=== PATIENT | female | born 1995 | race Hispanic/Latino ===

== ENCOUNTER → 2017-10-15 | Outpatient (CLI) | payer OTHER ==
--- NOTE | 2017-10-15 14:27 | Diagnostic Imaging Report ---
PROCEDURE: X-RAY CHEST, TWO VIEWS COMPARISON: None. INDICATIONS: PHYSICAL FINDINGS: LUNGS: No consolidations or edema. PLEURA: No effusions or pneumothorax. HEART \T\ MEDIASTINUM: The heart is within normal size-limits. BONES \T\ SOFT TISSUES: No acute findings. CONCLUSION: No acute cardiopulmonary abnormality. Dictated by: Diallo Crystal M.D. on 10/15/2017 at 14:26 Electronically approved by: Diallo Crystal M.D. on 10/15/2017 at 14:26
== END ==
LOC: RAD 12:34
PROVIDERS: ATTEND Internal Medicine
DX: Z00.00 Encounter for general adult medical examination without abnormal findings (principal)
CPT/HCPCS: 71046

== ENCOUNTER 2019-04-02 09:14 | Inpatient (IN) | payer BC, OTHER ==
[~2019-04-02] VITALS: Ht 144.8 cm; Wt 46.8 kg
[2019-04-02] MEDS ORDERED: ONDANSETRON HCL INJ 2MG/ML 2ML 2 MG/ML VIAL IV STA (09:32)
[2019-04-02] MEDS ORDERED: VITAMIN B-121000 MCG PO (09:37)
[2019-04-02] MEDS ORDERED: BIOTIN800 MCG (09:37)
[2019-04-02] MEDS ORDERED: METHOTREXATE2.5 MG PO (09:37)
[2019-04-02] MEDS ORDERED: FOLIC ACID1 MG PO (09:37)
[2019-04-02] MEDS ORDERED: PREDNISONE10 MG PO (09:37)
[2019-04-02] MEDS ORDERED: VITAMIN D400 UNIT PO (09:37)
[2019-04-02] MEDS ORDERED: PLAQUENIL200 MG PO (09:37)
[2019-04-02] MEDS ORDERED: ASPIRIN CHEW81 MG PO (09:37)
[2019-04-02] MEDS ORDERED: IOPAMIDOL 370 MG/ML 200 ML INFUS..BTL INJ ONE (09:44)
[2019-04-02] MEDS ORDERED: SODIUM CHLORIDE 0.9% 1000ML 1,000 ML IV SCH ×2 (09:45)
[2019-04-02] MEDS ORDERED: ACETAMINOPHEN 325 MG TAB PO ONE (09:45)
[2019-04-02] MEDS ORDERED: KETOROLAC TROMETHAMINE 30 MG/ML VIAL IV NR (09:45)
[2019-04-02] MEDS ORDERED: DIATRIZOATE MEGL/DIATRIZOA SOD 30 ML BTL PO ONE (09:46)
[2019-04-02] MEDS ORDERED: ACETAMINOPHEN 325 MG TAB ONE (09:47)
[2019-04-02] MEDS ORDERED: ONDANSETRON HCL INJ 2MG/ML 2ML 2 MG/ML VIAL ONE (09:47)
[2019-04-02] MEDS ORDERED: SODIUM CHLORIDE 0.9% 1000ML 2,000 ML ONE (09:48)
--- NOTE | 2019-04-02 11:40 | Diagnostic Imaging Report ---
Chest, 2 views, 04/02/2019. History: Fever. Comparison: None available. Findings: The cardiomediastinal silhouette and pulmonary vasculature are within normal limits. The lungs are clear without evidence of consolidation or pleural effusion. There are no acute osseous or soft tissue abnormalities. Impression: No acute cardiopulmonary abnormality. Signed by: Jhoan Worthington on 04/02/2019 11:37 AM
[2019-04-02] MEDS ORDERED: PIPER-TAZ 3.375 GM 50 ML IV ONE (11:45)
--- NOTE | 2019-04-02 11:48 | Diagnostic Imaging Report ---
CT of the abdomen and pelvis, with contrast, 04/02/2019. History: Abdominal pain. Comparison: None available. Technique: Multidetector CT scanning of the abdomen and pelvis was performed from the level of the lung bases to the inferior pubic rami after intravenous and oral administration of contrast. Coronal and sagittal multiplanar reformations were obtained. RADIATION DOSE: Total DLP: 330 mGy*cm Dose modulation, iterative reconstruction, and/or weight based adjustment of the mA/kV was utilized to reduce the radiation dose to as low as reasonably achievable. Discussion: LUNG BASES: No visualized abnormalities. ABDOMEN: The liver, gallbladder, biliary tree, spleen, pancreas, adrenal glands, and kidneys are normal. The hepatic vein, portal vein, and splenic vein are patent. The abdominal aorta is within normal limits for size. The stomach, small bowel, and large bowel are unremarkable. There is no bowel dilatation or bowel wall thickening. The appendix is visualized and is normal. There is no evidence of adenopathy or free fluid. PELVIS: The bladder, uterus, and adnexa are normal in appearance. There is no evidence of free fluid or adenopathy. BONES AND SOFT TISSUES: No abnormality. IMPRESSION: Normal CT of the abdomen and pelvis. No evidence of cholelithiasis, nephrolithiasis, appendicitis, or bowel obstruction. Signed by: Jhoan Worthington on 04/02/2019 11:45 AM
[2019-04-02] MEDS ORDERED: PIPER-TAZ 3.375 GM 50 ML ONE (13:08)
[2019-04-02] MEDS ORDERED: LEVOFLOXACIN 750MG/D5W 150ML 150 ML IV ONE (13:08)
[2019-04-02] MEDS ORDERED: ONDANSETRON HCL INJ 2MG/ML 2ML 2 MG/ML VIAL IV PRN (13:45)
[2019-04-02] MEDS: LEVOFLOXACIN 750MG/D5W 150ML 150 ML IV SCH (13:45)
[2019-04-02] MEDS: SODIUM CHLORIDE 0.9% 1000ML 1,000 ML IV SCH ×2 (14:10→18:43)
[2019-04-02] MEDS ORDERED: SODIUM CHLORIDE 0.9% 1000ML 1,000 ML ONE (14:14)
--- NOTE | 2019-04-02 16:16 | NUR ---
[facility] here for pt
--- NOTE | 2019-04-02 16:20 | NUR ---
Report called to AVERY Crowell in [facility]
[2019-04-02 16:30] VITALS: BP 121/77
--- NOTE | 2019-04-02 16:30 | NUR ---
Pt received from outside hospital. Alert and oriented x4. Oriented to staff and surroundings. Encouraged to press call lilly if help needed. Call lilly within reach. Will monitor
[2019-04-02] MEDS: PIPER-TAZ 3.375 GM 50 ML IV SCH ×2 (18:43→23:35)
--- NOTE | 2019-04-02 19:16 | NUR ---
All meds given as ordered. Handoff given to oncoming nurse.
--- NOTE | 2019-04-02 19:30 | NUR ---
patient recieved awake, alert, lying quietly in bed. vss. no c/o pain noted. ivf continue to infuse without difficulty. pm assessment complete. patient instructed to call for assistance when needed.
[2019-04-02 20:00] VITALS: BP 99/74
[2019-04-03] VITALS (7 sets, daily range): BP systolic 104–117; BP diastolic 63–79
--- NOTE | 2019-04-03 | NUR ---
patient appears to be resting quietly. vss. no c/o pain noted. ivf continue to infuse without difficulty. patient remains nsr on the bedside monitor.
[2019-04-03] MEDS: SODIUM CHLORIDE 0.9% 1000ML 1,000 ML IV SCH ×3 (03:00→22:55)
[2019-04-03 05:25] LABS: BASOPHILS % 0.4 % (0.0-1.0); EOSINOPHILS % 0.7 % (0.0-6.0); HEMATOCRIT 30.8 % (34.2-44.1); HEMOGLOBIN 9.8 g/dL (12.0-16.0); LYMPHOCYTES # (AUTO) 0.7 (1.0-3.2); LYMPHOCYTES % 24.4 % (18.0-39.1); MEAN CORPUSCULAR HEMOGLOBIN 26.6 pg (28-32); MEAN CORPUSCULAR HGB CONC 31.8 g/dL (31-35); MEAN CORPUSCULAR VOLUME 83.5 fL (81-99); MONOCYTES # (AUTO) 0.1 (0.2-0.8); MONOCYTES % 5.2 % (4.4-11.3); NEUTROPHILS # (AUTO) 1.8 (2.1-6.9); NEUTROPHILS % 68.2 % (38.7-80.0); PLATELET COUNT 196 x10e3/uL (140-360); RED BLOOD COUNT 3.69 x10e6/uL (3.6-5.1); RED CELL DISTRIBUTION WIDTH 18.4 % (11.7-14.4)
[2019-04-03] MEDS: PIPER-TAZ 3.375 GM 50 ML IV SCH ×4 (05:31→23:59)
[2019-04-03 05:58] LABS: ALBUMIN 2.8 g/dL (3.5-5.0); ALKALINE PHOSPHATASE 43 IU/L (40-150); ANION GAP 12.8 mmol/L (8-16); BLOOD UREA NITROGEN 6 mg/dL (7-26); BUN/CREATININE RATIO 8 (6-25); CARBON DIOXIDE 20 mmol/L (22-29); CHLORIDE 110 mmol/L (98-107); CREATININE, SERUM 0.71 mg/dL (0.57-1.11); EST GLOMERULAR FILTRATION RATE > 60 ML/MIN (60-); GLUCOSE 84 mg/dL (74-118); POTASSIUM 3.8 mmol/L (3.5-5.1); SODIUM 139 mmol/L (136-145)
[2019-04-03 06:09] LABS: ALANINE AMINOTRANSFERASE < 6 IU/L (0-55)
--- NOTE | 2019-04-03 07:00 | NUR ---
Pt received resting in bed with mother & sister at bedside. Oriented to staff and surrounding. Call lilly within reach. Will monitor
[2019-04-03] MEDS: PANTOPRAZOLE 40 MG 10ML VIAL IV SCH (08:17)
--- NOTE | 2019-04-03 08:30 | NUR ---
All meds given as ordered. No c/o abdominal pain noted or voiced. Call lilly within reach. Will monitor
[2019-04-03 09:08] LABS: EOSINOPHILS % (MANUAL) 1 % (0-7); LYMPHOCYTES % (MANUAL) 18 % (19-48); MONOCYTES % (MANUAL) 4 % (3.4-9.0); NEUTROPHILS % (MANUAL) 76 % (40-74); PLATELET ESTIMATE ADEQUATE; PLATELET MORPHOLOGY COMMENT NORMAL; RBC MORPHOLOGY COMMENT NORMAL
[2019-04-03] MEDS: LEVOFLOXACIN 750MG/D5W 150ML 150 ML IV SCH (11:44)
--- NOTE | 2019-04-03 17:58 | History and Physical ---
CHIEF COMPLAINT: Fever, vomiting, abdominal pain. HISTORY OF PRESENT ILLNESS: A 24-year-old female patient with history of lupus on methotrexate, prednisone, Plaquenil; had a fever of 101 with abdominal pain localized to the umbilical area and also vomited. After several episodes of vomiting, she noticed some blood streaks. She feels better. She was treated in the ER with a fluid bolus and antibiotics. The patient follows with Dr. Moise, primary care doctor. She feels better now. No pain. She tolerated the breakfast without vomiting. She denies diarrhea or rectal bleeding. PAST MEDICAL HISTORY: Lupus. MEDICATIONS: 1. Methotrexate 2.5 mg. 2. Plaquenil. 3. Folic acid 1 mg daily. 4. Biotin. 5. Aspirin. 6. Cholecalciferol. 7. Tylenol. 8. Zofran was given in the ER. PERSONAL HISTORY: No history of smoking or alcohol. PHYSICAL EXAMINATION: VITAL SIGNS: Weight 100 pounds. Temperature 100.3. Height of 4 feet 9 inches. HEENT: Normal. NECK: No JVD. LUNGS: Bilaterally normal. ABDOMEN: Soft. Bowel sounds are normal. EXTREMITIES: Lower extremities, no edema. [employer]ENDANT: Normal. LABORATORY DATA: CBC; white blood count 2.70, hemoglobin 9.8, and platelet 296. Chemistry, sodium [address] abdomen and pelvis with contrast normal. Chest x-ray normal. ASSESSMENT: Fever followed by abdominal pain and vomiting, most likely gastroenteritis. PLAN: We will continue to monitor. The patient is improving. If remains afebrile and tolerates feeding, we will discharge tomorrow. MD MARIELA Saleh/MODL /[id number]
[2019-04-04] VITALS: BP 113/80
[2019-04-04 04:31] VITALS: BP 100/63
[2019-04-04 06:23] LABS: BASOPHILS % 0.5 % (0.0-1.0); EOSINOPHILS % 1.8 % (0.0-6.0); HEMATOCRIT 30.3 % (34.2-44.1); HEMOGLOBIN 9.7 g/dL (12.0-16.0); LYMPHOCYTES # (AUTO) 0.5 (1.0-3.2); LYMPHOCYTES % 22.5 % (18.0-39.1); MEAN CORPUSCULAR HEMOGLOBIN 26.8 pg (28-32); MEAN CORPUSCULAR VOLUME 83.7 fL (81-99); MONOCYTES # (AUTO) 0.2 (0.2-0.8); MONOCYTES % 6.8 % (4.4-11.3); NEUTROPHILS # (AUTO) 1.5 (2.1-6.9); NEUTROPHILS % 67.5 % (38.7-80.0); PLATELET COUNT 176 x10e3/uL (140-360); RED BLOOD COUNT 3.62 x10e6/uL (3.6-5.1); RED CELL DISTRIBUTION WIDTH 18.6 % (11.7-14.4)
[2019-04-04] MEDS: PIPER-TAZ 3.375 GM 50 ML IV SCH ×2 (06:24→12:28)
[2019-04-04 07:13] VITALS: BP 107/63
[2019-04-04] MEDS: SODIUM CHLORIDE 0.9% 1000ML 1,000 ML IV SCH (08:34)
[2019-04-04] MEDS: PANTOPRAZOLE 40 MG 10ML VIAL IV SCH (08:37)
[2019-04-04 08:44] VITALS: BP 107/63
[2019-04-04 09:00] VITALS: BP 107/63
[2019-04-04] MEDS: LEVOFLOXACIN 750MG/D5W 150ML 150 ML IV SCH (10:54)
[2019-04-04 11:15] VITALS: BP 107/72
--- NOTE | 2019-04-04 12:00 | NUR ---
Placed call to Dr. Grace at patient's request to for work excuse. wating for call back.
--- NOTE | 2019-04-04 13:10 | NUR ---
Dr. Grace returned call made aware of patient's request work excuse, and wanting to know when to returned to work, per Dr. Grace patient may take Friday and Friday and return to work on Friday and put it on discharge paperwork. and to follow up with her primary care doctor, or go to Dr. Grace office for work excuse.
--- NOTE | 2019-04-04 13:12 | Discharge Summary ---
HOSPITAL COURSE: A 24-year-old female patient with history of lupus, admitted with abdominal pain, vomiting, and fever. The patient's blood pressure is low, she was given bolus of fluids and antibiotic. Lactic acid is 12.6. The patient felt better. She remained afebrile. She tolerated oral feeding. The patient be discharged home with oral Cipro for 5 days. DISCHARGE DIAGNOSES: Acute gastroenteritis, vomiting, diarrhea, dehydration, and sepsis. History of lupus. MD MARIELA Saleh/DAVIDL /[id number]
--- NOTE | 2019-04-04 13:35 | NUR ---
Patient discharged home verbalized understanding of discharge instructions.
== END 2019-04-04 13:35 | disposition home or self-care (01) | DRG 872 ==
LOC: FSED 09:14 → ERHOLD 13:33 → IMCU 16:30
PROVIDERS: ADMIT Internal Medicine; ATTEND Internal Medicine
DX: A41.9 Sepsis, unspecified organism (principal); K52.9 Noninfective gastroenteritis and colitis, unspecified; M32.9 Systemic lupus erythematosus, unspecified; E86.0 Dehydration
CPT/HCPCS: 36415; 71046; 74177; 80053; 81003; 81025; 82270; 83605; 85025; 86850; 86900; 87040; 93005; 96361; 96374; 99284; J2405; J2543; J7030; Q9967

== ENCOUNTER → 2019-06-17 | Outpatient (CLI) | payer BC ==
[~2019-06-17] MED LIST: ASPIRIN CHEW81 MG PO; BIOTIN800 MCG; FOLIC ACID1 MG PO; METHOTREXATE2.5 MG PO; PLAQUENIL200 MG PO; PREDNISONE10 MG PO; VITAMIN B-121000 MCG PO; VITAMIN D400 UNIT PO
--- NOTE | 2019-06-17 14:25 | Diagnostic Imaging Report ---
EXAMINATION: CHEST 2 VIEWS INDICATION: Infection COMPARISON: None FINDINGS: LINES/TUBES:None LUNGS:The lungs are well-inflated. No focal consolidation or pulmonary edema. PLEURA:No pleural effusion or pneumothorax. MEDIASTINUM:The cardiomediastinal silhouette appears normal in size and shape. BONES/SOFT TISSUES:No acute osseous injury. ABDOMEN:No free air under the diaphragm. IMPRESSION: No focal pneumonia or pulmonary edema. Signed by: Patti Navarro MD on 06/17/2019 2:21 PM
== END ==
LOC: RAD 13:24
PROVIDERS: ATTEND Internal Medicine
DX: B99.9 Unspecified infectious disease (principal)
CPT/HCPCS: 71046

== ENCOUNTER 2022-05-13 10:23 | Emergency (ER) | payer BC, OTHER ==
[~2022-05-13] VITALS: Ht 144.8 cm; Wt 45.4 kg
[2022-05-13] MEDS ORDERED: IBUPROFEN 600 MG TAB PO STA (11:11)
[2022-05-13] MEDS ORDERED: TAMIFLU75 MG PO (11:16)
[2022-05-13] MEDS ORDERED: IBUPROFEN 600 MG TAB ONE (11:30)
== END 2022-05-13 11:22 | disposition home or self-care (01) ==
LOC: FSED 10:26
DX: R50.9 Fever, unspecified (principal); J10.1 Influenza due to other identified influenza virus with other respiratory manifestations; J20.9 Acute bronchitis, unspecified; R05.9 Cough, unspecified
CPT/HCPCS: 83518; 87400; 99283